=== PATIENT | female | born 1980 | race Caucasian/White ===

== ENCOUNTER 2020-07-15 20:48 | Observation (INO) | payer MEDICAID ==
[~2020-07-15] VITALS: Ht 162.6 cm; Wt 90.3 kg
[2020-07-15] MEDS ORDERED: PREN-118 PO (21:49)
[2020-07-15] MEDS ORDERED: LACTATED RINGERS 1,000 ML IV SCH (22:07)
[2020-07-15] MEDS ORDERED: BETAMETHASONE ACET/BETAMET 30 MG/5 ML VIAL IM SCH (22:15)
[2020-07-15] MEDS: TERBUTALINE SULFATE 1MG/ML VIAL SUBCUT PRN ×2 (22:21→23:35)
[2020-07-15 22:37] LABS: CLARITY URINE CLEAR (CLEAR); COLOR URINE DARK YELLOW (YELLOW); KETONES URINE TRACE (NEGATIVE); LEUKOCYTE ESTERASE URINE TRACE (NEGATIVE); NITRITE URINE NEGATIVE (NEGATIVE); OCCULT BLOOD URINE NEGATIVE (NEGATIVE); PROTEIN URINE NEGATIVE (NEGATIVE); SPECIFIC GRAVITY URINE 1.027 (1.005-1.030)
[2020-07-16] MEDS ORDERED: PREN-182 PO (23:29)
[2020-07-16] MEDS ORDERED: CALC-1042 MT (23:30)
[2020-07-16] MEDS ORDERED: FERR325T6 MT (23:30)
== END 2020-07-16 02:11 | disposition home or self-care (01) ==
LOC: 8 EST LDRP 20:48
PROVIDERS: ADMIT Obstetrics & Gynecology; ATTEND Obstetrics & Gynecology
DX: O62.9 Abnormality of forces of labor, unspecified (principal); O99.89 Other specified diseases and conditions complicating pregnancy, childbirth and the puerperium; M54.9 Dorsalgia, unspecified; Z3A.33 33 weeks gestation of pregnancy
CPT/HCPCS: 59025; 81003; 96360; 96361; 96372; G0378; J0702; J3105; 59412; 99281

== ENCOUNTER 2020-07-16 21:52 | Observation (INO) | payer MEDICAID ==
[~2020-07-16] VITALS: Ht 162.6 cm; Wt 90.3 kg
[~2020-07-16 21:52] MED LIST: PREN-118 PO
[2020-07-16] MEDS ORDERED: PREN-182 PO (23:29)
[2020-07-16] MEDS ORDERED: FERR325T6 MT (23:30)
[2020-07-16] MEDS ORDERED: CALC-1042 MT (23:30)
[2020-07-17] MEDS ORDERED: BETAMETHASONE ACET/BETAMET 30 MG/5 ML VIAL IM NR (01:00)
== END 2020-07-17 01:20 | disposition home or self-care (01) ==
LOC: 8 EST A/PP 21:52
PROVIDERS: ADMIT Obstetrics & Gynecology; ATTEND Obstetrics & Gynecology
DX: Z34.83 Encounter for supervision of other normal pregnancy, third trimester (principal); Z3A.33 33 weeks gestation of pregnancy
CPT/HCPCS: 96372; G0378; J0702; 59025; 99281

== ENCOUNTER 2020-07-18 10:50 | Inpatient (IN) | payer MEDICAID ==
[~2020-07-18] VITALS: Ht 162.6 cm; Wt 90.3 kg
[~2020-07-18 10:50] MED LIST changes: +CALC-1042 MT; +FERR325T6 MT; -PREN-118 PO; +PREN-182 PO
[2020-07-18] MEDS ORDERED: BUTORPHANOL TARTRATE 2 MG/ML VIAL IV PRN (11:45)
[2020-07-18] MEDS ORDERED: MISOPROSTOL 100MCG TABLET ONE (11:49)
[2020-07-18] MEDS ORDERED: ACETAMINOPHEN 500MG TABLET PO SCH (12:00)
[2020-07-18] MEDS: TERBUTALINE SULFATE 1MG/ML VIAL SUBCUT PRN ×2 (12:09→14:42)
[2020-07-18] MEDS: LACTATED RINGERS 1,000 ML IV SCH ×2 (12:10→13:50)
[2020-07-18] MEDS ORDERED: DEXT 5%/LR + PITOCIN 20UNITS/L 1,000 ML IV SCH ×2 (17:26→21:12)
[2020-07-18] MEDS ORDERED: LACTATED RINGERS 1,000 ML IV SCH (17:26)
[2020-07-18] MEDS ORDERED: CARBOPROST TROMETHAMINE 250 MCG/ML AMPUL IM PRN (17:30)
[2020-07-18] MEDS ORDERED: NALOXONE HCL 0.4 MG/ML 1ML VIAL IM PRN (17:30)
[2020-07-18] MEDS ORDERED: METHYLERGONOVINE MALEATE 0.2 MG/ML IM PRN ×2 (17:30→21:15)
[2020-07-18] MEDS ORDERED: LIDOCAINE HCL 1% 20ML VIAL (Pyxis) INJ INFIL SCH (17:30)
[2020-07-18] MEDS ORDERED: MISOPROSTOL 100MCG TABLET VG SCH (17:30)
[2020-07-18] MEDS ORDERED: AMPICILLIN 2,000 MG in SODIUM CHLORIDE 0.9% 100 ML IV NR (18:00)
[2020-07-18 18:19] LABS: CLARITY URINE CLEAR (CLEAR); COLOR URINE YELLOW (YELLOW); KETONES URINE NEGATIVE (NEGATIVE); LEUKOCYTE ESTERASE URINE 1+ (NEGATIVE); NITRITE URINE NEGATIVE (NEGATIVE); OCCULT BLOOD URINE TRACE (NEGATIVE); PH URINE 6.5 (4.5-8.0); PROTEIN URINE NEGATIVE (NEGATIVE); SPECIFIC GRAVITY URINE 1.016 (1.005-1.030); UROBILINOGEN URINE 0.2 E.U./dL (0.2-1.0)
[2020-07-18 18:23] LABS: BASOPHILS % 0.3 % (0.0-2.0); EOSINOPHILS % 0.1 % (0.0-5.0); HEMATOCRIT. 32.6 % (36.0-48.0); LYMPHOCYTES % 19.8 % (20.0-50.0); MEAN CORPUSCULAR VOLUME 91.3 fL (81.0-99.0); MEAN PLATELET VOLUME 10.1 fl (7.4-10.4); MONOCYTES % 6.3 % (2.0-8.0); NEUTROPHILS % 73.5 % (40.0-76.0); PLATELET 194 x1000/uL (130-400); RED BLOOD CELL COUNT 3.56 mill/uL (4.2-5.4); RED CELL DISTRIBUTION WIDTH 13.2 % (11.6-14.6)
[2020-07-18 18:28] LABS: PARTIAL THROMBOPLASTIN TIME 27.5 sec (23.4-31.0); PROTHROMBIN TIME 10.3 sec (9.6-11.0)
[2020-07-18 18:39] LABS: *AMPHETAMINES SCREEN URINE NEGATIVE (NEGATIVE); *BARBITURATES SCREEN URINE NEGATIVE (NEGATIVE); CANNABINOID URINE SCREEN NEGATIVE (NEGATIVE); PHENCYCLIDINE URINE SCREEN NEGATIVE (NEGATIVE)
[2020-07-18 18:40] LABS: *BENZODIAZEPINES SCREEN URINE NEGATIVE (NEGATIVE); *COCAINE SCREEN URINE NEGATIVE (NEGATIVE); METHADONE URINE SCREEN NEGATIVE (NEGATIVE); OPIATES URINE SCREEN NEGATIVE (NEGATIVE)
[2020-07-18 19:47] LABS: HEPATITIS B SURFACE ANTIGEN NEGATIVE
[2020-07-18] MEDS ORDERED: ACETAMINOPHEN WITH CODEINE 300/30MG TABLET PO PRN (21:15)
[2020-07-18] MEDS ORDERED: IBUPROFEN 800MG TABLET PO PRN (21:15)
[2020-07-18] MEDS ORDERED: IBUPROFEN 400MG TABLET PO PRN (21:15)
[2020-07-18] MEDS ORDERED: BENZOCAINE/LANOLIN/ALOE VERA SPRAY TOP PRN (21:15)
[2020-07-18] MEDS ORDERED: GLYCERIN/WITCH HAZEL LEAF MEDICATED PAD TOP PRN (21:15)
[2020-07-18] MEDS ORDERED: DIPHENHYDRAMINE 25MG CAPSULE PO PRN (21:15)
[2020-07-18] MEDS ORDERED: LANOLIN OINT 7GM TUBE TOP PRN (21:15)
[2020-07-18 22:45] VITALS: BP 107/57
[2020-07-19] VITALS: BP 101/59
[2020-07-19] MEDS ORDERED: AMPICILLIN 1,000 MG in SODIUM CHLORIDE 0.9% 50 ML IV SCH ×2
[2020-07-19 05:15] VITALS: BP 105/62
[2020-07-19] MEDS: PRENATAL VIT/FE FUMARATE/FA TABLET PO SCH (07:57)
[2020-07-19 08:00] VITALS: BP 102/62
[2020-07-19 16:00] VITALS: BP 110/63
[2020-07-19 19:30] VITALS: BP 121/58
[2020-07-20 04:00] VITALS: BP 103/56
[2020-07-20 06:47] LABS: BASOPHILS % 0.4 % (0.0-2.0); EOSINOPHILS % 1.5 % (0.0-5.0); HEMATOCRIT. 35.2 % (36.0-48.0); HEMOGLOBIN. 11.8 g/dL (12.0-16.0); LYMPHOCYTES % 36.4 % (20.0-50.0); MEAN CORPUSCULAR HEMOGLOBIN 30.9 pg (28.0-32.0); MEAN CORPUSCULAR VOLUME 92.1 fL (81.0-99.0); MEAN PLATELET VOLUME 9.7 fl (7.4-10.4); MONOCYTES % 5.9 % (2.0-8.0); NEUTROPHILS % 55.8 % (40.0-76.0); PLATELET 189 x1000/uL (130-400); RED BLOOD CELL COUNT 3.82 mill/uL (4.2-5.4); RED CELL DISTRIBUTION WIDTH 13.3 % (11.6-14.6)
[2020-07-20 08:00] VITALS: BP_SYST 110; BP_SYST 114; BP_DIAS 64; BP_DIAS 71
[2020-07-20] MEDS: PRENATAL VIT/FE FUMARATE/FA TABLET PO SCH (08:41)
== END 2020-07-20 10:55 | disposition home or self-care (01) | DRG 560 ==
LOC: 8 EST A/PP 10:50 → OBSVTOIN 10:50 → INTOOBSV 10:50 → 8 EST LDRP 17:17 → 8EST 22:45
PROVIDERS: ADMIT Obstetrics & Gynecology; ATTEND Obstetrics & Gynecology
PROC: 10E0XZZ Delivery of Products of Conception, External Approach (ICD-10-PCS; principal; 2020-07-18)
DX: O60.14X0 Preterm labor third trimester with preterm delivery third trimester, not applicable or unspecified (principal); Z37.0 Single live birth; Z3A.34 34 weeks gestation of pregnancy; O67.9 Intrapartum hemorrhage, unspecified
CPT/HCPCS: 36415; 80305; 81003; 85025; 86592; 86703; 86762; 86850; 86900; 87340; 96360; 99281; G0378; J0290; J2590; J3105; J7050